=== PATIENT | female | born 1955 | race Asian ===

== ENCOUNTER 2020-02-25 15:09 | Emergency (ER) | payer MEDICAID ==
[~2020-02-25] VITALS: Ht 162.6 cm; Wt 122.6 kg
[2020-02-25 15:11] VITALS: BP 155/69
--- NOTE | 2020-02-25 15:27 | NUR ---
PATIENT AMBULATED TO BED 6.
--- NOTE | 2020-02-25 15:33 | NUR ---
64 Y/O F C/C LEFT CALF SWOLLENESS X 3 MONTHS. PER PT REFERRED BY PCP TO ER FOR FURTHER EVALUATION OF POSSIBLE BLOOD CLOT ON LEFT CALF. ON ASSESSMENT, LEFT CALF WARM TO TOUCH, SWOLLEN IN APPEARANCE. PT DENIES CHEST PAIN, DYSPNEA. ALLERGIES PNC. HX HTN,HDL,PRE-DM. RX LOSARTAN,SIMVASTATIN,METFORMIN. SIDE RAIL X1.
--- NOTE | 2020-02-25 16:07 | NUR ---
US AT BEDSIDE
[2020-02-25 17:34] VITALS: BP 150/70
--- NOTE | 2020-02-25 17:34 | NUR ---
Patient discharged with v/s stable. Written and verbal after care instructions given and explained. Patient verbalized understanding. Ambulatory with steady gait. All questions addressed prior to discharge. Advised to follow up with PMD.
== END 2020-02-25 17:34 | disposition home or self-care (01) ==
LOC: MED 15:09
DX: R22.43 Localized swelling, mass and lump, lower limb, bilateral (principal); I10 Essential (primary) hypertension; Z88.0 Allergy status to penicillin
CPT/HCPCS: 81002; 93971; 99284; Q0092